=== PATIENT | female | born 1960 | race Caucasian/White ===

== ENCOUNTER 2023-11-17 19:50 | Emergency (ER) | payer OTHER ==
[~2023-11-17] VITALS: Ht 152.4 cm; Wt 75.7 kg
[2023-11-17] MEDS: LABETALOL 20 MG/4 ML VIAL IVP ONE (01:00)
[2023-11-17 20:35] VITALS: BP 197/94; RESP 16; TEMP 96.9; O2SAT 100
[2023-11-17 22:38] LABS: BASOPHILS % (AUTO) 0.3 % (0.0-2.0); EOSINOPHILS # (AUTO) 0.2 K/uL (0-0.4); EOSINOPHILS % (AUTO) 2.2 % (0.0-4.0); HEMATOCRIT 37.1 % (36-48); HEMOGLOBIN 12.9 g/dL (12.0-16.0); LYMPHOCYTES # (AUTO) 1.8 K/uL (2.5-16.5); LYMPHOCYTES % (AUTO) 25.1 % (20.5-51.1); MEAN CORPUSCULAR HEMOGLOBIN 32 pg (27-31); MEAN CORPUSCULAR HGB CONC 35 g/dL (33-37); MEAN CORPUSCULAR VOLUME 90.2 fL (80-94); MONOCYTES # (AUTO) 0.4 K/uL (0.8-1.0); MONOCYTES % (AUTO) 5.3 % (1.7-9.3); NEUTROPHILS # (AUTO) 4.9 K/uL (1.8-7.7); NEUTROPHILS % (AUTO) 67.1 % (42.2-75.2); PLATELET COUNT (AUTO) 245 K/uL (140-450); RED BLOOD CELL COUNT(AUTO) 4.11 MIL/uL (4.20-5.40); RED CELL DISTRIBUTION WIDTH 12.7 % (11.6-13.7); WHITE BLOOD COUNT (AUTO) 7.2 K/uL (4.8-10.8)
[2023-11-17 23:05] LABS: ANION GAP 9.1 (8-16); CARBON DIOXIDE 29.7 mmol/L (21-32); CREATININE 0.6 mg/dL (0.6-1.3); POTASSIUM 3.8 mmol/L (3.5-5.1)
[2023-11-17 23:07] LABS: INR 0.96 (0.8-1.2); PARTIAL THROMBOPLASTIN TIME 25.6 secs (22-35.6); PROTHROMBIN TIME 10.1 secs (10.8-13.4)
[2023-11-17] MEDS: ONDANSETRON 4 MG/2 ML VIAL IVP ONE (23:40)
[2023-11-18] MEDS: ACETAMINOPHEN EXTRA STRENGTH 500 MG TAB PO ONE (00:23)
[2023-11-18] MEDS ORDERED: LABETALOL 20 MG/4 ML VIAL IVP ONE (00:58)
[2023-11-18] MEDS ORDERED: ONDANSETRON 4 MG/2 ML VIAL ONE (00:58)
[2023-11-18 01:10] VITALS: TEMP 96.9; O2SAT 97
[2023-11-18 01:37] VITALS: BP 156/74; PULSE 72; RESP 16
== END 2023-11-18 01:37 | disposition home or self-care (01) ==
LOC: MED 19:50
DX: I16.0 Hypertensive urgency (principal); E11.9 Type 2 diabetes mellitus without complications; Z79.4 Long term (current) use of insulin; Z79.899 Other long term (current) drug therapy
CPT/HCPCS: 36415; 71045; 80048; 83880; 84484; 85025; 85610; 85730; 93005; 96374; 96375; 99285; J2405; J3490